=== PATIENT | female | born 1970 | race Caucasian/White ===

== ENCOUNTER 2020-07-12 07:34 | Emergency (ER) | payer MEDICARE, OTHER ==
[2020-07-12 07:49] VITALS: BP 164/97; PULSE 93; RESP 18; TEMP 98.7
[2020-07-12] MEDS ORDERED: LIDOCAINE 1% INJ 10MG/ML (20 ML MDV) SQ ONE (08:03)
--- NOTE | 2020-07-12 08:06 | ED ---
General Adult HPI - General Source: patient, RN notes reviewed, old records reviewed Mode of arrival: wheelchair Limitations: no limitations <Kinsey Hilliard - Last Filed: 07/12/20 08:58> <Annabella Dubois - Last Filed: 07/14/20 01:45> - General Chief complaint: Extremity Injury, Lower Stated complaint: rt leg lac Time Seen by Provider: 07/12/20 07:50 - History of Present Illness Initial comments: Patient is a 49-year-old female who presents emergency room today with a laceration over her right knee. Patient reports that she's getting out of a pool yesterday evening tripped and her knee hit the corner of a cement brick step. Patient reports that she has pain with range of motion of the knee. She has history of von Willebrand disease. Patient reports that the laceration was wrapped up last night to came here this morning for further evaluation. Patient states that it continues slowly bleed. Patient states that she's had no numbness or tingling down the leg. She denies any other injury related to the fall. (Kinsey Hilliard) - Related Data Allergies Allergy/AdvReac Type Severity Reaction Status Date / Time diphenhydramine Allergy Dyspnea Verified 07/12/20 07:51 [From Benadryl] gabapentin Allergy Hallucinati Verified 07/12/20 07:51 ons latex Allergy Dyspnea Verified 07/12/20 07:51 pregabalin [From Lyrica] Allergy Rapid Verified 07/12/20 07:51 Heart Rate Sulfa (Sulfonamide Allergy Dyspnea Verified 07/12/20 07:51 Antibiotics) antihistamines Allergy Rash/Hives Uncoded 07/12/20 07:51 Review of Systems ROS Other: All systems not noted in ROS Statement are negative. <Kinsey Hilliard - Last Filed: 07/12/20 08:58> ROS Other: All systems not noted in ROS Statement are negative. <Annabella Dubois - Last Filed: 07/14/20 01:45> ROS Statement: Those systems with pertinent positive or pertinent negative responses have been documented in the HPI. Past Medical History Past Medical History: Thyroid Disorder Additional Past Medical History / Comment(s): tachycardia History of Any Multi-Drug Resistant Organisms: None Reported Past Surgical History: Section, Orthopedic Surgery Additional Past Surgical History / Comment(s): neck, partial thyroidectomy, gastric bypass Past Psychological History: Bipolar, Depression Smoking Status: Never smoker Past Alcohol Use History: Occasional Past Drug Use History: None Reported <Kinsey Hilliard - Last Filed: 07/12/20 08:58> General Exam Limitations: no limitations General appearance: alert, in no apparent distress Head exam: Present: atraumatic, normocephalic, normal inspection Eye exam: Present: normal appearance, PERRL, EOMI. Absent: scleral icterus, conjunctival injection, periorbital swelling ENT exam: Present: normal exam, mucous membranes moist Neck exam: Present: normal inspection. Absent: tenderness, meningismus, lymphadenopathy Respiratory exam: Present: normal lung sounds bilaterally. Absent: respiratory distress, wheezes, rales, rhonchi, stridor Cardiovascular Exam: Present: regular rate, normal rhythm, normal heart sounds. Absent: systolic murmur, diastolic murmur, rubs, gallop, clicks GI/Abdominal exam: Present: soft, normal bowel sounds. Absent: distended, tenderness, guarding, rebound, rigid Extremities exam: Present: normal inspection, full ROM, normal capillary refill. Absent: tenderness, pedal edema, joint swelling, calf tenderness Right Knee exam: Present: tenderness, swelling, laceration (3cm laceration over R knee) Lower Leg exam: Present: normal inspection, full ROM Ankle exam: Present: normal inspection, full ROM Foot/Toe exam: Present: normal inspection, full ROM Neurovascular tendon exam: Present: no vascular compromise Gait: observed and normal Back exam: Present: normal inspection Neurological exam: Present: alert, oriented X3, CN II-XII intact Psychiatric exam: Present: normal affect, normal mood Skin exam: Present: warm, dry, intact, normal color. Absent: rash <Kinsey Hilliard - Last Filed: 07/12/20 08:58> - General Exam Comments Initial Comments: 49-year-old female. Alert and oriented. (Kinsey Hilliard) Course Vital Signs 07/12/20 07:45 Temperature 98.7 F Pulse Rate 93 Respiratory 18 Rate Blood Pressure 164/97 O2 Sat by Pulse 97 Oximetry Procedures - Laceration Laceration #1 Size (cm): 3 Description: linear Anesthetic Used: lidocaine 1% Anesthesia Technique: local infiltration Amount (mls): 5 Pre-repair: wound explored, irrigated extensively Type of Sutures: nylon Size of Sutures: 5-0 Number of Sutures: 5 Technique: simple, interrupted Patient Tolerated Procedure: well, no complications <HalliealexandraAletaKinsey - Last Filed: 07/12/20 08:58> Medical Decision Making - Radiology Data Radiology results: report reviewed <Kinsey Hilliard - Last Filed: 07/12/20 08:58> <Annabella Dubois - Last Filed: 07/14/20 01:45> - Medical Decision Making Patient is a 49-year-old female presents with right knee laceration. Patient tripped on a cement block and hit it. X-ray shows no fracture but a small 1-2 mm foreign body. The wound was thoroughly irrigated and then closed with 5 sutures. Patient tolerated procedure well. She does have pain with range of motion knee. I discussed monitoring for any signs of infection including redness swelling or drainage. (Kinsey Hilliard) I was available for consultation in the emergency department. The history and physical exam were done by the midlevel provider. I was not consulted for this patients care. Chart was dictated using [employer] dictation software. Attempts were made to correct any dictation errors however some typographical errors may persist. Patient was seen during a national state of emergency due to the Covid-19 pandemic. (Annabella Dubois) - Radiology Data No evidence of fracture dislocation of the right knee. Mild narrowing patellofemoral and medial tibiofemoral compartments. There is a subcutaneous edema medially the level distal femur at the 1-2 mm punctate foreign body on oblique view to superior to the patella and anterior to the patellar tendon. (Kinsey Hilliard) Disposition Is patient prescribed a controlled substance at d/c from ED?: No Time of Disposition: 09: <Kinsey Hilliard - Last Filed: 07/12/20 08:58> <Annabella Dubois - Last Filed: 07/14/20 01:45> Clinical Impression: Knee laceration Disposition: HOME SELF-CARE Condition: Good Instructions (If sedation given, give patient instructions): Laceration (DC) Additional Instructions: Please return to the emergency room in 8-10 days to have sutures removed. Please leave wound covered for the first 24-48 hours and then leave open to air after that time. Please use clean soap and water to clean the suture area to prevent scabbing over the top of your sutures. Please watch for any signs of infection which may include but not limited to increased pain, swelling, redness, fever or chills. Please return to the emergency room if any signs of infection do occur. Please return to the emergency room for any other concerns or complications. Referrals: Nonstaff,Physician [Primary Care Provider] - 1-2 days
[2020-07-12] MEDS ORDERED: BACITRACIN OINT 1 EACH PACKET TOPICAL ONE (08:19)
--- NOTE | 2020-07-12 08:31 | XR ---
EXAMINATION TYPE: XR knee complete RT DATE OF EXAM: 07/12/2020 CLINICAL HISTORY: Laceration injury with pain after slip and fall, rule out foreign body TECHNIQUE: Three views of the right knee are obtained. COMPARISON: None. FINDINGS: There is no acute fracture/dislocation evident in right knee. Mild narrowing patellofemora l and medial tibiofemoral compartments. No significant spurring. Mild subcutaneous edema medially at level of the distal femur with single 1 to 2 mm punctate foreign body seen on oblique and lateral projections just inferior to the inferior patellar pole likely in th e anterior medial subcutaneous fat medial to the patellar tendon. IMPRESSION: As above.
== END 2020-07-12 09:05 | disposition home or self-care (01) ==
LOC: EC 07:34
DX: S81.021A Laceration with foreign body, right knee, initial encounter (principal); Z91.040 Latex allergy status; Z88.6 Allergy status to analgesic agent; Z88.8 Allergy status to other drugs, medicaments and biological substances; Z88.2 Allergy status to sulfonamides; Z98.890 Other specified postprocedural states; W01.198A Fall on same level from slipping, tripping and stumbling with subsequent striking against other object, initial encounter; Y92.34 Swimming pool (public) as the place of occurrence of the external cause
CPT/HCPCS: 73562; 99283; 12002; J2001